=== PATIENT | male | born 1990 | race Two or more races ===

== ENCOUNTER 2019-01-23 21:02 | Emergency (ER) | payer MEDICAID ==
[~2019-01-23] VITALS: Ht 182.9 cm; Wt 99.8 kg
[2019-01-23 23:28] LABS: Basophils # (auto) 0.1 uL; Eosinophils # (auto) 0.2 uL; Lymphocytes % (auto) 31.3 % (10.0-50.0); Monocytes # (auto) 0.9 uL; Neutrophils # (auto) 5.9 uL; Nucleated Red Blood Cells % 0.1 %
[2019-01-23 23:30] LABS: Basophils % (auto) 0.6 % (0.0-2.0); Eosinophils % (auto) 2.2 % (0.0-7.0); Hematocrit 37.1 % (41.0-53.0); Hemoglobin 11.7 g/dL (13.5-17.5); Lymphocytes # (auto) 3.3 uL; Mean Corpuscular Hemoglobin 21.8 pg (28.0-32.0); Mean Corpuscular Hgb Conc. 31.5 g/dL (32.0-36.0); Mean Corpuscular Volume 69.2 fL (80.0-100.0); Neutrophils % (auto) 56.9 % (37.0-80.0); Platelet Count (auto) 440 10^3/uL (140-450); Red Blood Cells 5.37 10^6/uL (4.5-5.90); Red Cell Distribution Width 18.6 % (11.8-14.3); White Blood Cell 10.4 10^3/uL (4.4-10.8)
[2019-01-23 23:46] LABS: Alanine Aminotransferase 42 U/L (16-61); Albumin 3.6 g/dL (3.4-5.0); Anion Gap 7 (5-15); Aspartate Aminotransferase 24 U/L (15-37); BUN/Creatinine Ratio 10.5; Blood Urea Nitrogen 9 mg/dL (7-18); Calcium 8.3 mg/dL (8.5-10.1); Carbon Dioxide 25 mmol/L (21-32); Chloride 105 mmol/L (98-107); GFR African American 135 mL/min; GFR Non-African American 112 mL/min; Glucose 87 mg/dL (74-106); Potassium 3.5 mmol/L (3.5-5.1); Sodium 137 mmol/L (136-145)
[2019-01-23 23:50] LABS: Alkaline Phosphatase 69 U/L (45-117); Bilirubin, Total 0.2 mg/dL (0.2-1.0); Total Protein 7.4 g/dL (6.4-8.2)
[2019-01-24 05:40] VITALS: BP 115/71
[2019-01-24] MEDS ORDERED: PANTOPRAZOLE 40 MG TAB PO ONE (05:45)
[2019-01-24] MEDS ORDERED: CYCLOBENZAPRINE HCL 10 MG TAB PO ONE (05:45)
[2019-01-24] MEDS ORDERED: traMADol HCL 50 MG TAB PO ONE (05:45)
== END 2019-01-24 05:56 | disposition home or self-care (01) ==
LOC: ER 21:05
DX: S23.3XXA Sprain of ligaments of thoracic spine, initial encounter (principal); K27.9 Peptic ulcer, site unspecified, unspecified as acute or chronic, without hemorrhage or perforation; X58.XXXA Exposure to other specified factors, initial encounter; Y93.89 Activity, other specified; Y92.89 Other specified places as the place of occurrence of the external cause; Y99.8 Other external cause status
CPT/HCPCS: 36415; 71046; 80053; 84484; 85025; 93005